=== PATIENT | male | born 1985 | race Caucasian/White ===

== ENCOUNTER 2020-01-26 11:13 | Day surgery (SDC) | payer OTHER, SELFPAY ==
[~2020-01-26] VITALS: Ht 180.3 cm; Wt 52.2 kg
[2020-01-26] MEDS ORDERED: fentaNYL citrate 0.05 MG/ML VIAL ONE (14:05)
[2020-01-26] MEDS ORDERED: METOCLOPRAMIDE 10 MG/2 ML INJ VIAL ONE (14:05)
[2020-01-26] MEDS ORDERED: DEXAMETHASONE 4 MG/ML VIAL ONE (14:05)
[2020-01-26] MEDS ORDERED: ONDANSETRON 4 MG/2 ML VIAL ONE (14:05)
[2020-01-26] MEDS ORDERED: GLYCOPYRROLATE 0.2 MG/ML VIAL ONE (14:05)
[2020-01-26] MEDS ORDERED: KETOROLAC 30 MG/ML VIAL ONE (14:05)
[2020-01-26] MEDS ORDERED: SEVOFLURANE 250 ML BTL INH ONE (14:05)
[2020-01-26] MEDS ORDERED: SUCCINYLCHOLINE CHLORIDE 200 MG/10 ML VIAL IVP ONE (14:05)
[2020-01-26] MEDS ORDERED: PROPOFOL 200 MG/20 ML VIAL IV ONE (14:05)
[2020-01-26] MEDS ORDERED: ROCURONIUM 50 MG/5 ML VIAL IV ONE (14:05)
[2020-01-26] MEDS ORDERED: NEOSTIGMINE 1:1000 10 MG/10 ML VIAL ONE (14:05)
[2020-01-26] MEDS ORDERED: MIDAZOLAM 2 MG/2 ML VIAL ONE (14:05)
[2020-01-26] MEDS ORDERED: LIDOCAINE 1% 500 MG/50 ML VIAL ONE (14:29)
[2020-01-26] MEDS ORDERED: BUPIVACAINE-MPF 0.25% 30 ML VIAL INJ ONE (14:29)
[2020-01-26] MEDS ORDERED: ONDANSETRON 4 MG/2 ML VIAL IVP PRN ×2 (15:30→15:55)
[2020-01-26] MEDS ORDERED: HYDROmorphone 1 MG/ML AMP IVP PRN (15:30)
[2020-01-26] MEDS ORDERED: HYDROcodone/APAP 5/325 MG 1 TAB TAB PO PRN (15:55)
[2020-01-26] MEDS: HYDROmorphone PFS 2 MG/ML SYR ONE ×3 (16:30→16:50)
[2020-01-26] MEDS ORDERED: PIPERACILLIN/TAZOBACTAM 2.25 GM VIAL IV ONE (16:30)
[2020-01-26 17:00] VITALS: BP 100/61
[2020-01-26 17:30] VITALS: BP 103/55
[2020-01-26] MEDS: POTASSIUM CHL 20 MEQ/D5-1/2NS 1,000 ML IV SCH (20:28)
[2020-01-26] MEDS: HYDROmorphone 1 MG/ML AMP IVP PRN (20:36)
[2020-01-27] VITALS: BP 96/53
[2020-01-27] MEDS: HYDROmorphone 1 MG/ML AMP IVP PRN (04:44)
[2020-01-27 07:46] LABS: ALBUMIN 3.8 g/dL (3.4-5.0); ANION GAP 11.6 (8-16); CARBON DIOXIDE 28.4 mmol/L (21-32); TOTAL BILIRUBIN 0.9 mg/dL (0.0-1.0)
[2020-01-27 07:48] LABS: BASOPHILS % (AUTO) 0.2 % (0.0-2.0); EOSINOPHILS % (AUTO) 0.1 % (0.0-4.0); HEMOGLOBIN 13.3 g/dL (12.0-18.0); LYMPHOCYTES # (AUTO) 1.9 K/uL (2.0-11.5); LYMPHOCYTES % (AUTO) 19.3 % (20.5-51.1); MEAN CORPUSCULAR HEMOGLOBIN 31 pg (27-31); MEAN CORPUSCULAR HGB CONC 33 g/dL (33-37); MEAN CORPUSCULAR VOLUME 94.4 fL (80-94); MONOCYTES # (AUTO) 0.8 K/uL (0.8-1.0); MONOCYTES % (AUTO) 7.9 % (1.7-9.3); NEUTROPHILS % (AUTO) 72.5 % (42.2-75.2); PLATELET COUNT (AUTO) 160 K/uL (140-450); RED BLOOD CELL COUNT(AUTO) 4.24 MIL/uL (4.20-6.10); RED CELL DISTRIBUTION WIDTH 12.7 % (11.6-13.7); WHITE BLOOD COUNT (AUTO) 9.6 K/uL (4.8-10.8)
[2020-01-27 08:00] VITALS: BP 108/64
[2020-01-27] MEDS: POTASSIUM CHL 20 MEQ/D5-1/2NS 1,000 ML IV SCH (09:12)
[2020-01-27 09:20] VITALS: BP 108/64
== END 2020-01-27 09:40 | disposition home or self-care (01) ==
LOC: MDS 11:13 → MFCC 11:14 → MTU 17:44 → MDS 01-27 09:40
PROVIDERS: ATTEND Surgery
DX: K80.10 Calculus of gallbladder with chronic cholecystitis without obstruction (principal); Z79.899 Other long term (current) drug therapy; Z20.828 Contact with and (suspected) exposure to other viral communicable diseases
CPT/HCPCS: 36415; 47562; 80053; 85025; 88304; J0330; J1100; J1170; J1885; J2001; J2250; J2405; J2543; J2704; J2710; J2765; J3010; J3490; J7030; J7120; U0003; J0690; J7060